=== PATIENT | male | born 1985 | race Caucasian/White ===

== ENCOUNTER 2024-02-26 15:40 | Emergency (ER) | payer OTHER, SELFPAY ==
[2024-02-26 15:44] VITALS: BP 131/81; PULSE 88; RESP 12; TEMP 37.2; O2SAT 98
--- NOTE | 2024-02-26 15:56 | ED.UPPEXIN ---
HPI - Extremity Injury (Upper) General Chief Complaint: Extremity Injury, Upper Stated Complaint: L arm injury Time Seen by Provider: 02/26/24 15:42 History of Present Illness HPI narrative: 39-year-old male presents emergency room for evaluation of redness, swelling, tenderness and pain to his left forearm. Patient states that he has been using a wire brush to clean metal, where he has been stuck multiple times at the end of the wire to his left forearm. Began developing of redness swelling and increased pain to the area. Has been taking ibuprofen with no improvement. Denies any purulent drainage from the puncture wounds Review of Systems Review of Systems: ROS unremarkable except for noted in HPI Exam Narrative: GENERAL: Well-appearing, well-nourished, no physical limitations, and in no acute distress. HEAD: Normocephalic, atraumatic. EYES: Conjunctivae normal, PERRLA and EOMI. CHEST: Clear to auscultation. No respiratory distress. No wheezes rales or rhonchi. HEART: Regular rate and rhythm. No murmur heard. Normal peripheral pulses. EXTREMITIES: Left forearm: area of erythema, edema with multiple scabbed over puncture wounds SKIN: Warm, dry, no rash. No noted wounds NEURO: No focal deficits. Alert and oriented x3. MAEW. CN's II-XI intact bilaterally, normal gait PSYCH: Cooperative. Normal mood and affect. Course Vital Signs Vital signs: Vital Signs Temperature 37.2 C 02/26/24 15:44 Pulse Rate 88 02/26/24 15:44 Respiratory Rate 12 02/26/24 15:44 Blood Pressure 131/81 02/26/24 15:44 Pulse Oximetry 98 02/26/24 15:44 Temperature 37.2 C 02/26/24 15:44 Pulse Rate 88 02/26/24 15:44 Respiratory Rate 12 02/26/24 15:44 Blood Pressure 131/81 02/26/24 15:44 Pulse Oximetry 98 02/26/24 15:44 Discharge Plan Discharge Clinical Impression: Need for tetanus booster Cellulitis Qualifiers: Site of cellulitis: extremity Site of cellulitis of extremity: upper extremity Laterality: left Qualified Code(s): L03.114 - Cellulitis of left upper limb Patient Disposition: Home, Self-Care Condition: Stable Instructions: Antibiotic Form, Cellulitis (ED) Prescriptions: New sulfamethoxazole-trimethoprim [Bactrim DS] 800-160 mg tablet 1 tablet PO Q12H Qty: 20 0RF Follow-up/Referrals: PHYSICIAN,STATISTICAL MACHINE MECHANIC [Primary Care Provider] - Time of Disposition: 16:02
[2024-02-26] MEDS: TETANUS,DIPHTHERIA,AC PERTUSSIS ADULT (0.5 ML) BOOSTRIX IM (16:17)
== END 2024-02-26 16:30 | disposition home or self-care (01) ==
PROVIDERS: Emergency Provider Nurse Practitioner Family
DX: L03.114 Cellulitis of left upper limb (principal); Z23 Encounter for immunization
CPT/HCPCS: 90471; 90715; 99283